=== PATIENT | female | born 1970 | race Hispanic/Latino ===

== ENCOUNTER 2017-07-27 08:56 | Emergency (ER) | payer MEDICAID ==
[2017-07-27 09:02] VITALS: BP 139/86; PULSE 74; TEMP 97.6; O2SAT 100
--- NOTE | 2017-07-27 09:30 | C.PDOC ---
History Of Present Illness 47 y/o F p/w blurry vision x 1 year and congestion, rhinorrhea, and ear itchiness x few days. Patient states her vision has becoming more and more blurry over the course of the past year. She states she went to the [facility] and was prescribed glasses but that it has not helped. She now states that over the last few days, she has been having congestion, head fullness, rhinorrhea and has been taking Claritin. She denies fever or purulent discharge. Denies trauma, eye discharge. Time Seen by Provider: 07/27/17 09:21 Chief Complaint (Nursing): Eye Problem Past Medical History Vital Signs: Last Vital Signs Temp 97.6 F 07/27/17 09:01 Pulse 74 07/27/17 09:01 Resp 18 07/27/17 09:37 BP 139/86 07/27/17 09:01 Pulse Ox 100 07/27/17 09:31 Family History: States: Unknown Family Hx - Social History Hx Alcohol Use: No Hx Substance Use: Yes (marijuana) Review Of Systems Except As Marked, All Systems Reviewed And Found Negative. Constitutional: Negative for: Fever Respiratory: Negative for: Shortness of Breath Physical Exam - Physical Exam Additional Physical Exam Comments: Gen: NAD Head: NC/AT Eyes: PERRL. EOMI. Visual acuity 20/40 and 20/50. No middilated pupil. No corneal cloudiness. No conjunctival injection. No discharge. No hyphema. Ears: TMs normal. No pharyngeal erythema or exudates. Neck: Supple CV: Regular rate Skin: No rash over face/ears. Neuro: Alert ED Course And Treatment O2 Sat by Pulse Oximetry: 100 Medical Decision Making Medical Decision Making: Patient with chronically worsening vision but no emergent findings on exam today. Instructed patient to follow up with Ophtho. Will treat symptoms consistent with seasonal allergies. No evidence currently of bacterial sinus infection but instructed to return to ED for fever, purulent discharge, or facial swelling. Disposition - Disposition Referrals: Ashish Albert [Staff Provider] - Disposition: HOME/ ROUTINE Disposition Time: 09:28 Condition: STABLE Prescriptions: Cetirizine HCl [Zyrtec] 10 mg PO Q12H #45 capsule Guaifenesin [Mucinex] 1,200 mg PO Q12H #18 tab.er.[id number] Instructions: Seasonal Allergies in Adults Forms: [employer] ([place] Irish) - Clinical Impression Clinical Impression: Seasonal allergies, Vision changes
[2017-07-27 09:38] VITALS: RESP 18
== END 2017-07-27 09:38 | disposition home or self-care (01) ==
LOC: C.ER 08:56
DX: J30.2 Other seasonal allergic rhinitis (principal); H53.8 Other visual disturbances